=== PATIENT | male | born 1970 | race African-American/Black ===

== ENCOUNTER 2018-03-30 18:08 | Emergency (ER) | payer OTHER ==
[~2018-03-30] VITALS: Ht 182.9 cm; Wt 79.4 kg
== END 2018-03-30 20:02 | disposition home or self-care (01) ==
LOC: ER 18:08
DX: S01.02XA Laceration with foreign body of scalp, initial encounter (principal); W45.8XXA Other foreign body or object entering through skin, initial encounter; Y93.89 Activity, other specified; Y92.838 Other recreation area as the place of occurrence of the external cause; Y99.8 Other external cause status